=== PATIENT | female | born 1970 | race Caucasian/White ===

== ENCOUNTER 2017-01-26 19:37 | Emergency (ER) | payer MEDICAID ==
[~2017-01-26] VITALS: Ht 160 cm; Wt 56.0 kg
[~2017-01-26 19:37] MED LIST: METF500T4; PROM-177; RANI-84
[2017-01-26 21:20] VITALS: BP 104/67
== END 2017-01-27 02:00 | disposition left against medical advice (07) ==
LOC: ER 01-27 01:51
DX: R10.13 Epigastric pain (principal); R11.2 Nausea with vomiting, unspecified; R19.7 Diarrhea, unspecified; Z53.21 Procedure and treatment not carried out due to patient leaving prior to being seen by health care provider